=== PATIENT | female | born 1945 | race African-American/Black ===

== ENCOUNTER 2016-09-04 12:54 | Emergency (ER) | payer MEDICARE, OTHER ==
[~2016-09-04] VITALS: Ht 165.1 cm; Wt 72.7 kg
[~2016-09-04 12:54] MED LIST: AMLO-512 PO; CARV6 PO; DIAZ5 PO; HYDR25TA PO; LISI-622 PO; PARO20TA24 PO; RISP1TAB7 PO; TRAZ150 PO
[2016-09-04] MEDS ORDERED: SODIUM CHLORIDE 0.9% 1,000 ML IV ONE (13:45)
[2016-09-04 14:10] LABS: CALCIUM, TOTAL 8.9 mg/dL (8.8-10.5); CREATININE 1.15 mg/dL (0.60-1.30); POTASSIUM 3.3 mmol/L (3.5-5.1)
[2016-09-04 14:15] LABS: ALBUMIN 3.5 g/dL (3.4-5.0); BILIRUBIN,TOTAL 0.3 mg/dL (0.1-1.0); TOTAL PROTEIN, SERUM 7.4 g/dL (6.4-8.2)
[2016-09-04 14:16] LABS: RED BLOOD CELL COUNT(AUTO) 4.23 MIL/uL (4.00-5.20); WHITE BLOOD COUNT (AUTO) 4.1 K/uL (4.5-11.0)
[2016-09-04 14:17] LABS: BASOPHILS % (AUTO) 0.7 % (0.0-2.0); EOSINOPHILS % (AUTO) 0.6 % (1.0-6.0); HEMATOCRIT 35.9 % (36-46); HEMOGLOBIN 11.1 g/dL (12.0-16.0); LYMPHOCYTES # (AUTO) 1.1 K/uL (1.0-4.8); LYMPHOCYTES % (AUTO) 27.4 % (22.0-44.0); MEAN CORPUSCULAR HEMOGLOBIN 26.2 pg (26.0-34.0); MEAN CORPUSCULAR VOLUME 85 fL (80-100); MONOCYTES # (AUTO) 0.4 K/uL (0.1-1.0); MONOCYTES % (AUTO) 10.7 % (2.0-9.0); NEUTROPHILS # (AUTO) 2.4 K/uL (1.8-7.7); NEUTROPHILS % (AUTO) 60.4 % (40.0-70.0); PLATELET COUNT (AUTO) 214 K/uL (150-450); RBC MORPHOLOGY COMMENT ABNORMAL RBC MORPH; RED CELL DISTRIBUTION WIDTH 19.8 % (11.5-14.5)
[2016-09-04 15:28] LABS: APPEARANCE,URINE CLOUDY (CLEAR); GLUCOSE, URINE (UA) NEGATIVE (NEGATIVE); KETONES,URINE NEGATIVE (NEGATIVE); LEUKOCYTE ESTERASE ,URINE NEGATIVE (NEGATIVE); OCCULT BLOOD,URINE NEGATIVE (NEGATIVE); PH,URINE 5.5 (5.0-8.0); PROTEIN,URINE NEGATIVE (NEGATIVE)
[2016-09-04 15:42] LABS: ADD UA MICROSCOPIC YES
[2016-09-04 15:43] LABS: RBC,URINE 0-2 /HPF (0-2); SQUAMOUS EPITHELIAL CELL,UR Few /LPF (None Seen); WBC,URINE 0-2 /HPF (0-5)
[2016-09-04] MEDS ORDERED: CIPROFLOXACIN HCL 250 MG TABLET PO ONE (16:00)
[2016-09-04 16:33] VITALS: BP 127/62
== END 2016-09-04 16:34 | disposition home or self-care (01) ==
LOC: EMS 12:58
DX: R55 Syncope and collapse (principal); N39.0 Urinary tract infection, site not specified; E87.6 Hypokalemia; K21.9 Gastro-esophageal reflux disease without esophagitis; I67.1 Cerebral aneurysm, nonruptured; I10 Essential (primary) hypertension; Z86.73 Personal history of transient ischemic attack (TIA), and cerebral infarction without residual deficits; Z88.0 Allergy status to penicillin
CPT/HCPCS: 36415; 80053; 81001; 83880; 84484; 85025; 87077; 87086; 87186; 93005; 96360; 99285; J7030

== ENCOUNTER 2017-03-11 06:24 | Inpatient (IN) | payer MEDICARE, OTHER ==
[~2017-03-11] VITALS: Ht 167.6 cm; Wt 68.0 kg
[~2017-03-11 06:24] MED LIST changes: -PARO20TA24 PO
[2017-03-11] MEDS ORDERED: ONDANSETRON HCL 4 MG/2 ML VIAL IVP ONE (06:45)
[2017-03-11] MEDS ORDERED: SODIUM CHLORIDE 0.9% 1,000 ML IV ONE (06:45)
[2017-03-11] MEDS ORDERED: NICARDipine 20 MG/DEXT,ISO-OSM 200 ML IV PRN ×2 (06:59→10:57)
[2017-03-11 07:01] LABS: BASOPHILS % (AUTO) 0.3 % (0.0-2.0); EOSINOPHILS % (AUTO) 0.7 % (1.0-6.0); HEMATOCRIT 36.8 % (36-46); HEMOGLOBIN 12.2 g/dL (12.0-16.0); LYMPHOCYTES # (AUTO) 2.1 K/uL (1.0-4.8); LYMPHOCYTES % (AUTO) 22.2 % (22.0-44.0); MEAN CORPUSCULAR HEMOGLOBIN 29.6 pg (26.0-34.0); MEAN CORPUSCULAR HGB CONC 33.1 G/dL (31.0-37.0); MEAN CORPUSCULAR VOLUME 89 fL (80-100); MONOCYTES # (AUTO) 0.7 K/uL (0.1-1.0); MONOCYTES % (AUTO) 7.1 % (2.0-9.0); NEUTROPHILS # (AUTO) 6.7 K/uL (1.8-7.7); NEUTROPHILS % (AUTO) 69.7 % (40.0-70.0); PLATELET COUNT (AUTO) 182 K/uL (150-450); RED BLOOD CELL COUNT(AUTO) 4.12 MIL/uL (4.00-5.20); RED CELL DISTRIBUTION WIDTH 17.3 % (11.5-14.5); WHITE BLOOD COUNT (AUTO) 9.6 K/uL (4.5-11.0)
[2017-03-11 07:11] LABS: ANION GAP 9 mmol/L (8-16); CALCIUM, TOTAL 8.7 mg/dL (8.8-10.5); CARBON DIOXIDE 30 mmol/L (22-29); CHLORIDE 105 mmol/L (98-107); CREATININE 0.77 mg/dL (0.60-1.30); GLOMERULAR FILTR. RATE CALC > 60 mL/min (>60); INR 1.1 (0.9-1.1); POTASSIUM 4.3 mmol/L (3.5-5.1); PROTHROMBIN TIME 11.2 SEC (9.4-11.6); SODIUM SERUM 144 mmol/L (136-145); UREA NITROGEN, BLOOD 13 mg/dL (7-18)
[2017-03-11 07:17] LABS: ALANINE AMINOTRANSFERASE 30 U/L (12-78); ALBUMIN 3.4 g/dL (3.4-5.0); ASPARTATE AMINOTRANSFERASE 37 U/L (15-37); BILIRUBIN,TOTAL 0.2 mg/dL (0.1-1.0); CREATINE KINASE, TOTAL 50 U/L (26-192)
[2017-03-11 07:18] LABS: TROPONIN I 0.04 ng/mL (0.00-0.05)
[2017-03-11 07:19] LABS: LACTIC ACID 1.2 mmol/L (0.4-2.0)
[2017-03-11] MEDS ORDERED: LevETIRAcetam 1,000 MG in DEXTROSE 5%-WATER 100 ML IV ONE (07:30)
[2017-03-11 07:32] LABS: B-TYPE NATRIURETIC PEPTIDE 29 pg/mL (0-100)
[2017-03-11 07:35] LABS: RBC MORPHOLOGY COMMENT ABNORMAL RBC MORPH
[2017-03-11 07:40] LABS: AMMONIA < 10 umol/L (11-32)
[2017-03-11 07:41] LABS: ADD UA MICROSCOPIC YES; APPEARANCE,URINE CLEAR (CLEAR); GLUCOSE, URINE (UA) 100 mg/dL (NEGATIVE); KETONES,URINE NEGATIVE (NEGATIVE); LEUKOCYTE ESTERASE ,URINE NEGATIVE (NEGATIVE); OCCULT BLOOD,URINE NEGATIVE (NEGATIVE); PH,URINE 6.5 (5.0-8.0); PROTEIN,URINE POS 1+ (NEGATIVE)
[2017-03-11] MEDS ORDERED: IOVERSOL 350 MG/ML 100 ML VIAL ONE (07:42)
[2017-03-11 07:49] LABS: RBC,URINE None Seen /HPF (0-2); SQUAMOUS EPITHELIAL CELL,UR Few /LPF (None Seen); WBC,URINE 0-2 /HPF (0-5)
[2017-03-11] MEDS ORDERED: ONDANSETRON HCL 4 MG/2 ML VIAL IVP PRN ×2 (08:15→11:00)
[2017-03-11] MEDS ORDERED: 0.9% SODIUM CHLORIDE 10 ML SYRINGE IVP PRN (08:15)
[2017-03-11] MEDS ORDERED: ACETAMINOPHEN 325 MG TABLET PO PRN (08:15)
[2017-03-11] MEDS ORDERED: BISACODYL 10 MG RECTAL RECTAL SUPPOSITORY PR PRN (11:00)
[2017-03-11] MEDS ORDERED: ZOLPIDEM TARTRATE 5 MG TABLET PO PRN (11:00)
[2017-03-11] MEDS ORDERED: MAGNESIUM HYDROXIDE SUSPENSION 30 ML UDCUP PO PRN (11:00)
[2017-03-11 11:27] VITALS: BP 138/72
[2017-03-11] MEDS ORDERED: PNEUMOCOCCAL VACCINE POLYVALENT 0.5 ML VIAL [PPSV23] IM ONE (11:30)
[2017-03-11] MEDS: ACETAMINOPHEN 325 MG TABLET PO PRN ×2 (11:48→18:08)
[2017-03-11 12:00] VITALS: BP 146/77
[2017-03-11 16:00] VITALS: BP 131/72
[2017-03-11 19:41] VITALS: BP 120/75
[2017-03-11] MEDS: CARVEDILOL 6.25 MG TABLET PO SCH (19:41)
[2017-03-11] MEDS: DOCUSATE SODIUM 100 MG CAPSULE PO SCH (19:41)
[2017-03-11] MEDS: MORPHINE SULFATE 2 MG/ML SYRINGE IVP PRN (19:41)
[2017-03-11 20:00] VITALS: BP 134/79
[2017-03-12] VITALS (9 sets, daily range): BP systolic 119–172; BP diastolic 72–96
[2017-03-12] MEDS: MORPHINE SULFATE 2 MG/ML SYRINGE IVP PRN ×2 (04:51→11:14)
[2017-03-12 05:48] LABS: INR 1.1 (0.9-1.1); PROTHROMBIN TIME 11.2 SEC (9.4-11.6)
[2017-03-12 06:10] LABS: ALANINE AMINOTRANSFERASE 26 U/L (12-78); ALBUMIN 3.3 g/dL (3.4-5.0); ANION GAP 7 mmol/L (8-16); ASPARTATE AMINOTRANSFERASE 27 U/L (15-37); BILIRUBIN,TOTAL 0.3 mg/dL (0.1-1.0); CARBON DIOXIDE 31 mmol/L (22-29); CHLORIDE 103 mmol/L (98-107); CREATININE 0.97 mg/dL (0.60-1.30); GLOMERULAR FILTR. RATE CALC > 60 mL/min (>60); POTASSIUM 3.1 mmol/L (3.5-5.1); SODIUM SERUM 141 mmol/L (136-145); TOTAL PROTEIN, SERUM 7.3 g/dL (6.4-8.2); UREA NITROGEN, BLOOD 12 mg/dL (7-18)
[2017-03-12 06:27] LABS: BASOPHILS % (AUTO) 0.4 % (0.0-2.0); EOSINOPHILS % (AUTO) 0.4 % (1.0-6.0); HEMATOCRIT 37.1 % (36-46); HEMOGLOBIN 12.2 g/dL (12.0-16.0); LYMPHOCYTES # (AUTO) 1.2 K/uL (1.0-4.8); LYMPHOCYTES % (AUTO) 28.7 % (22.0-44.0); MEAN CORPUSCULAR HEMOGLOBIN 29.3 pg (26.0-34.0); MEAN CORPUSCULAR HGB CONC 32.9 G/dL (31.0-37.0); MEAN CORPUSCULAR VOLUME 89 fL (80-100); MONOCYTES # (AUTO) 0.6 K/uL (0.1-1.0); MONOCYTES % (AUTO) 13.2 % (2.0-9.0); NEUTROPHILS # (AUTO) 2.5 K/uL (1.8-7.7); NEUTROPHILS % (AUTO) 57.3 % (40.0-70.0); PLATELET COUNT (AUTO) 196 K/uL (150-450); RED BLOOD CELL COUNT(AUTO) 4.16 MIL/uL (4.00-5.20); RED CELL DISTRIBUTION WIDTH 16.9 % (11.5-14.5); WHITE BLOOD COUNT (AUTO) 4.4 K/uL (4.5-11.0)
[2017-03-12] MEDS: PANTOPRAZOLE SODIUM 40 MG DR TABLET PO SCH (08:21)
[2017-03-12] MEDS: DOCUSATE SODIUM 100 MG CAPSULE PO SCH ×2 (08:21→20:15)
[2017-03-12] MEDS: CARVEDILOL 6.25 MG TABLET PO SCH ×2 (08:22→20:15)
[2017-03-12] MEDS: ACETAMINOPHEN 325 MG TABLET PO PRN (08:22)
[2017-03-12] MEDS: AmLODIPine BESYLATE 10 MG TABLET PO SCH (08:22)
[2017-03-12] MEDS ORDERED: LISINOPRIL 5 MG TABLET PO SCH (09:00)
[2017-03-12] MEDS: HydrALAZINE HCL 10 MG TABLET PO PRN ×2 (13:10→22:06)
[2017-03-12] MEDS ORDERED: RISP.5 PO (15:09)
[2017-03-12] MEDS ORDERED: POTASSIUM CHLORIDE 20 MEQ ER TABLET PO PRN (16:00)
[2017-03-12] MEDS: POTASSIUM CHLORIDE 20 MEQ ER TABLET PO PRN ×2 (16:00→22:05)
[2017-03-12] MEDS ORDERED: POTASSIUM CHL 10 MEQ/WATER 50 ML IV PRN ×2 (16:00)
[2017-03-12] MEDS: HYDROCODONE/ACETAMINOPHEN 5-325 MG TABLET PO PRN ×2 (16:25→22:06)
[2017-03-12] MEDS: SODIUM CHLORIDE 0.9% 1,000 ML IV SCH (17:14)
[2017-03-13] VITALS (11 sets, daily range): BP systolic 150–160; BP diastolic 76–99
[2017-03-13] MEDS: MORPHINE SULFATE 2 MG/ML SYRINGE IVP PRN ×2 (00:20→11:03)
[2017-03-13] MEDS: HYDROCODONE/ACETAMINOPHEN 5-325 MG TABLET PO PRN (04:58)
[2017-03-13 05:54] LABS: ANION GAP 4 mmol/L (8-16); CARBON DIOXIDE 31 mmol/L (22-29); CHLORIDE 104 mmol/L (98-107); CREATININE 0.72 mg/dL (0.60-1.30); GLOMERULAR FILTR. RATE CALC > 60 mL/min (>60); SODIUM SERUM 139 mmol/L (136-145); UREA NITROGEN, BLOOD 11 mg/dL (7-18)
[2017-03-13] MEDS: SODIUM CHLORIDE 0.9% 1,000 ML IV SCH (07:58)
[2017-03-13] MEDS: AmLODIPine BESYLATE 10 MG TABLET PO SCH (08:05)
[2017-03-13] MEDS: PANTOPRAZOLE SODIUM 40 MG DR TABLET PO SCH (08:05)
[2017-03-13] MEDS: DOCUSATE SODIUM 100 MG CAPSULE PO SCH ×2 (08:05→21:00)
[2017-03-13] MEDS: CARVEDILOL 6.25 MG TABLET PO SCH ×2 (08:05→21:08)
[2017-03-13] MEDS ORDERED: LISINOPRIL 10 MG TABLET PO SCH (09:00)
[2017-03-13] MEDS ORDERED: LISINOPRIL 5 MG TABLET PO SCH (09:00)
[2017-03-13] MEDS ORDERED: HydrALAZINE HCL 25 MG TABLET PO SCH (09:00)
[2017-03-13] MEDS: SODIUM CHLORIDE 0.45% 1,000 ML IV SCH (10:50)
[2017-03-13] MEDS ORDERED: LABETALOL HCL 100 MG TABLET PO SCH (11:15)
[2017-03-13] MEDS: HydrALAZINE HCL 25 MG TABLET PO SCH ×2 (15:33→21:08)
[2017-03-14] VITALS (7 sets, daily range): BP systolic 150–178; BP diastolic 76–98
[2017-03-14] MEDS: ACETAMINOPHEN 325 MG TABLET PO PRN (00:10)
[2017-03-14] MEDS: HYDROCODONE/ACETAMINOPHEN 5-325 MG TABLET PO PRN ×3 (03:36→18:53)
[2017-03-14 08:05] LABS: ANION GAP 7 mmol/L (8-16); CALCIUM, TOTAL 9.2 mg/dL (8.8-10.5); CARBON DIOXIDE 31 mmol/L (22-29); CHLORIDE 101 mmol/L (98-107); CREATININE 0.61 mg/dL (0.60-1.30); GLOMERULAR FILTR. RATE CALC > 60 mL/min (>60); PHOSPHORUS 3.2 mg/dL (2.5-4.9); POTASSIUM 3.9 mmol/L (3.5-5.1); SODIUM SERUM 139 mmol/L (136-145); UREA NITROGEN, BLOOD 9 mg/dL (7-18)
[2017-03-14] MEDS: AmLODIPine BESYLATE 10 MG TABLET PO SCH (08:10)
[2017-03-14] MEDS: HydrALAZINE HCL 10 MG TABLET PO PRN (08:10)
[2017-03-14] MEDS: CARVEDILOL 6.25 MG TABLET PO SCH (08:11)
[2017-03-14] MEDS: DOCUSATE SODIUM 100 MG CAPSULE PO SCH ×2 (08:11→20:36)
[2017-03-14] MEDS: PANTOPRAZOLE SODIUM 40 MG DR TABLET PO SCH (08:11)
[2017-03-14] MEDS: HydrALAZINE HCL 25 MG TABLET PO SCH ×3 (08:12→20:36)
[2017-03-14] MEDS: SODIUM CHLORIDE 0.45% 1,000 ML IV SCH (08:13)
[2017-03-14] MEDS: CARVEDILOL 12.5 MG TABLET PO SCH (20:36)
[2017-03-15] MEDS: HydrALAZINE HCL 10 MG TABLET PO PRN ×2 (01:44→12:25)
[2017-03-15 03:46] VITALS: BP 153/84
[2017-03-15 07:43] LABS: ANION GAP 8 mmol/L (8-16); CALCIUM, TOTAL 9.4 mg/dL (8.8-10.5); CARBON DIOXIDE 32 mmol/L (22-29); CHLORIDE 93 mmol/L (98-107); CREATININE 0.57 mg/dL (0.60-1.30); GLOMERULAR FILTR. RATE CALC > 60 mL/min (>60); PHOSPHORUS 3.6 mg/dL (2.5-4.9); POTASSIUM 3.8 mmol/L (3.5-5.1); SODIUM SERUM 133 mmol/L (136-145); UREA NITROGEN, BLOOD 14 mg/dL (7-18)
[2017-03-15 07:57] VITALS: BP 160/88
[2017-03-15] MEDS: CARVEDILOL 12.5 MG TABLET PO SCH (08:30)
[2017-03-15] MEDS: PANTOPRAZOLE SODIUM 40 MG DR TABLET PO SCH (08:30)
[2017-03-15] MEDS: DOCUSATE SODIUM 100 MG CAPSULE PO SCH ×2 (08:30→21:06)
[2017-03-15] MEDS: AmLODIPine BESYLATE 10 MG TABLET PO SCH (08:30)
[2017-03-15 12:21] VITALS: BP 174/87
[2017-03-15] MEDS ORDERED: HydrALAZINE HCL 25 MG TABLET PO SCH (13:00)
[2017-03-15] MEDS: HydrALAZINE HCL 50 MG TABLET PO SCH ×2 (15:26→21:06)
[2017-03-15] MEDS: ACETAMINOPHEN 325 MG TABLET PO PRN (15:26)
[2017-03-15 16:01] VITALS: BP 155/85
[2017-03-15 18:22] VITALS: BP 156/90
[2017-03-15 19:29] VITALS: BP 158/91
[2017-03-15] MEDS: CARVEDILOL 25 MG TABLET PO SCH (21:06)
[2017-03-16 00:38] VITALS: BP 154/87
[2017-03-16] MEDS: MORPHINE SULFATE 2 MG/ML SYRINGE IVP PRN (00:48)
[2017-03-16 04:25] VITALS: BP 151/89
[2017-03-16 07:36] VITALS: BP 167/97
[2017-03-16] MEDS: PANTOPRAZOLE SODIUM 40 MG DR TABLET PO SCH (08:22)
[2017-03-16] MEDS: HydrALAZINE HCL 50 MG TABLET PO SCH (08:22)
[2017-03-16] MEDS: AmLODIPine BESYLATE 10 MG TABLET PO SCH (08:22)
[2017-03-16] MEDS: CARVEDILOL 25 MG TABLET PO SCH (08:22)
[2017-03-16] MEDS: DOCUSATE SODIUM 100 MG CAPSULE PO SCH (08:22)
[2017-03-16 11:15] VITALS: BP 157/94
== END 2017-03-16 13:25 | DRG 304 ==
LOC: EMS 06:25 → ICU 09:51 → 5N 03-13 17:50
PROVIDERS: ADMIT Internal Medicine; ATTEND Internal Medicine
DX: I16.1 Hypertensive emergency (principal); I60.9 Nontraumatic subarachnoid hemorrhage, unspecified; R34 Anuria and oliguria; I61.4 Nontraumatic intracerebral hemorrhage in cerebellum; F20.9 Schizophrenia, unspecified; I10 Essential (primary) hypertension; N28.1 Cyst of kidney, acquired; F29 Unspecified psychosis not due to a substance or known physiological condition; F41.9 Anxiety disorder, unspecified; K21.9 Gastro-esophageal reflux disease without esophagitis; Z86.73 Personal history of transient ischemic attack (TIA), and cerebral infarction without residual deficits; Z88.0 Allergy status to penicillin; Q27.9 Congenital malformation of peripheral vascular system, unspecified; Z79.899 Other long term (current) drug therapy; Z91.14 Patient's other noncompliance with medication regimen; Z90.10 Acquired absence of unspecified breast and nipple; Z90.710 Acquired absence of both cervix and uterus
CPT/HCPCS: 51702; 70450; 70496; 76770; 82570; 83605; 83735; 84100; 84132; 84300; 84540; 87040; 87081; 93005; 96361; 96365; 96366; 96368; 96375; 97110; 97116; 97162; 97167; 97530; 99291; J0712; J2270; J2405; J7030; J7060

== ENCOUNTER 2017-03-16 13:40 | Inpatient (IN) | payer MEDICARE, OTHER ==
[~2017-03-16] VITALS: Ht 167.6 cm; Wt 68.0 kg
[~2017-03-16 13:40] MED LIST changes: +RISP.5 PO; -RISP1TAB7 PO
[2017-03-16 14:30] VITALS: BP 161/86
[2017-03-16] MEDS ORDERED: DOCUSATE SODIUM 100 MG CAPSULE PO PRN (15:30)
[2017-03-16] MEDS ORDERED: SENNA 187 MG TABLET PO PRN (15:30)
[2017-03-16 16:28] VITALS: BP 183/93
[2017-03-16] MEDS: ACETAMINOPHEN 325 MG TABLET PO PRN ×2 (16:36→23:33)
[2017-03-16] MEDS: HydrALAZINE HCL 25 MG TABLET PO SCH ×2 (16:36→21:26)
[2017-03-16] MEDS ORDERED: PNEUMOCOCCAL VACCINE POLYVALENT 0.5 ML VIAL [PPSV23] IM ONE (20:00)
[2017-03-16] MEDS ORDERED: RisperiDONE 0.5 MG TABLET PO SCH (21:00)
[2017-03-16] MEDS ORDERED: TraZODone HCL 150 MG TABLET PO SCH (21:00)
[2017-03-16 21:23] VITALS: BP 162/90
[2017-03-16] MEDS: DIAZEPAM 5 MG TABLET PO SCH (21:26)
[2017-03-16] MEDS: CARVEDILOL 25 MG TABLET PO SCH (21:26)
[2017-03-16] MEDS: 0.9% SODIUM CHLORIDE 10 ML SYRINGE IVP SCH (23:26)
[2017-03-16 23:30] VITALS: BP 159/94
[2017-03-17] MEDS: DOCUSATE SODIUM 283 MG/5 ML MINI-ENEMA PR PRN (05:03)
[2017-03-17 05:11] LABS: BASOPHILS % (AUTO) 0.7 % (0.0-2.0); EOSINOPHILS % (AUTO) 0.1 % (1.0-6.0); HEMATOCRIT 36.4 % (36-46); HEMOGLOBIN 12.2 g/dL (12.0-16.0); LYMPHOCYTES # (AUTO) 1.3 K/uL (1.0-4.8); LYMPHOCYTES % (AUTO) 13.1 % (22.0-44.0); MEAN CORPUSCULAR HEMOGLOBIN 29.3 pg (26.0-34.0); MEAN CORPUSCULAR HGB CONC 33.5 G/dL (31.0-37.0); MEAN CORPUSCULAR VOLUME 87 fL (80-100); MONOCYTES # (AUTO) 0.7 K/uL (0.1-1.0); MONOCYTES % (AUTO) 7.3 % (2.0-9.0); NEUTROPHILS # (AUTO) 7.8 K/uL (1.8-7.7); NEUTROPHILS % (AUTO) 78.8 % (40.0-70.0); PLATELET COUNT (AUTO) 236 K/uL (150-450); RED BLOOD CELL COUNT(AUTO) 4.16 MIL/uL (4.00-5.20); WHITE BLOOD COUNT (AUTO) 9.9 K/uL (4.5-11.0)
[2017-03-17 05:31] LABS: ALANINE AMINOTRANSFERASE 34 U/L (12-78); ALBUMIN 2.8 g/dL (3.4-5.0); ANION GAP 6 mmol/L (8-16); ASPARTATE AMINOTRANSFERASE 22 U/L (15-37); BILIRUBIN,TOTAL 0.5 mg/dL (0.1-1.0); CALCIUM, TOTAL 9.1 mg/dL (8.8-10.5); CARBON DIOXIDE 31 mmol/L (22-29); CHLORIDE 90 mmol/L (98-107); CREATININE 0.57 mg/dL (0.60-1.30); GLOMERULAR FILTR. RATE CALC > 60 mL/min (>60); SODIUM SERUM 127 mmol/L (136-145); TOTAL PROTEIN, SERUM 7.2 g/dL (6.4-8.2); UREA NITROGEN, BLOOD 16 mg/dL (7-18)
[2017-03-17 07:00] VITALS: BP 148/85
[2017-03-17] MEDS: 0.9% SODIUM CHLORIDE 10 ML SYRINGE IVP SCH (08:00)
[2017-03-17] MEDS: PANTOPRAZOLE SODIUM 40 MG DR TABLET PO SCH (08:29)
[2017-03-17] MEDS: HydrALAZINE HCL 50 MG TABLET PO SCH ×3 (08:29→20:27)
[2017-03-17] MEDS: AmLODIPine BESYLATE 10 MG TABLET PO SCH (08:29)
[2017-03-17] MEDS: CARVEDILOL 25 MG TABLET PO SCH ×2 (08:29→20:27)
[2017-03-17] MEDS: DOCUSATE SODIUM 250 MG CAPSULE PO SCH ×2 (08:33→20:27)
[2017-03-17] MEDS ORDERED: LISINOPRIL 5 MG TABLET PO SCH (09:00)
[2017-03-17] MEDS: DIAZEPAM 5 MG TABLET PO SCH ×2 (09:00→20:27)
[2017-03-17 15:31] VITALS: BP 149/87
[2017-03-17] MEDS: ACETAMINOPHEN 325 MG TABLET PO PRN (15:39)
[2017-03-17 20:26] VITALS: BP 140/70
[2017-03-17] MEDS: SENNA 187 MG TABLET PO SCH (20:27)
[2017-03-17] MEDS ORDERED: TraZODone HCL 150 MG TABLET PO SCH (21:00)
[2017-03-17] MEDS ORDERED: RisperiDONE 0.5 MG TABLET PO SCH (21:00)
[2017-03-17 23:58] VITALS: BP 146/76
[2017-03-18] VITALS (7 sets, daily range): BP systolic 134–157; BP diastolic 68–88
[2017-03-18 06:46] LABS: HEMOGLOBIN A1C 5.7 % (4.5-6.2)
[2017-03-18 07:06] LABS: ANION GAP 5 mmol/L (8-16); CALCIUM, TOTAL 9.1 mg/dL (8.8-10.5); CARBON DIOXIDE 32 mmol/L (22-29); CHLORIDE 91 mmol/L (98-107); CHOL/HDL RATIO 2.7 (3.9-5.7); CREATININE 0.64 mg/dL (0.60-1.30); GLOMERULAR FILTR. RATE CALC > 60 mL/min (>60); POTASSIUM 4.1 mmol/L (3.5-5.1); SODIUM SERUM 128 mmol/L (136-145); THYROID STIMULATING HORMONE 1.36 uIU/mL (0.36-3.74); UREA NITROGEN, BLOOD 19 mg/dL (7-18)
[2017-03-18] MEDS: HydrALAZINE HCL 50 MG TABLET PO SCH ×3 (08:12→20:31)
[2017-03-18] MEDS: DOCUSATE SODIUM 250 MG CAPSULE PO SCH ×2 (08:12→20:37)
[2017-03-18] MEDS: DIAZEPAM 5 MG TABLET PO SCH (08:12)
[2017-03-18] MEDS: AmLODIPine BESYLATE 10 MG TABLET PO SCH (08:12)
[2017-03-18] MEDS: CARVEDILOL 25 MG TABLET PO SCH ×2 (08:12→20:31)
[2017-03-18] MEDS: LISINOPRIL 10 MG TABLET PO SCH (08:12)
[2017-03-18] MEDS: PANTOPRAZOLE SODIUM 40 MG DR TABLET PO SCH (08:12)
[2017-03-18] MEDS ORDERED: DEXTROSE 5%-WATER 1,000 ML IV ONE (15:00)
[2017-03-18 16:46] LABS: GLUCOSE, URINE (UA) NEGATIVE (NEGATIVE); KETONES,URINE NEGATIVE (NEGATIVE); LEUKOCYTE ESTERASE ,URINE SMALL (NEGATIVE); OCCULT BLOOD,URINE NEGATIVE (NEGATIVE); PH,URINE 5.5 (5.0-8.0); PROTEIN,URINE TRACE (NEGATIVE)
[2017-03-18 17:11] LABS: APPEARANCE,URINE SLIGHTLY CLOUDY (CLEAR)
[2017-03-18 17:12] LABS: RBC,URINE 0-2 /HPF (0-2); SQUAMOUS EPITHELIAL CELL,UR Moderate /LPF (None Seen)
[2017-03-18] MEDS: SENNA 187 MG TABLET PO SCH (20:37)
[2017-03-19] VITALS (10 sets, daily range): BP systolic 120–168; BP diastolic 54–97
[2017-03-19] MEDS: ACETAMINOPHEN 325 MG TABLET PO PRN ×2 (04:00→15:42)
[2017-03-19] MEDS: AmLODIPine BESYLATE 10 MG TABLET PO SCH (08:02)
[2017-03-19] MEDS: CARVEDILOL 25 MG TABLET PO SCH ×2 (08:02→21:46)
[2017-03-19] MEDS: DOCUSATE SODIUM 250 MG CAPSULE PO SCH ×2 (08:02→21:45)
[2017-03-19] MEDS: HydrALAZINE HCL 50 MG TABLET PO SCH ×3 (08:02→21:45)
[2017-03-19] MEDS: PANTOPRAZOLE SODIUM 40 MG DR TABLET PO SCH (08:02)
[2017-03-19] MEDS: LISINOPRIL 10 MG TABLET PO SCH (08:03)
[2017-03-19] MEDS: LEVOFLOXACIN 500 MG TABLET NG SCH (16:53)
[2017-03-19 17:21] LABS: ABG A-A DIFF O2 36.6 mmHg (10-20.0); ABG BASE EXCESS 5.4 mmol/L (-2.0-3.0); ABG OXYHEMOGLOBIN 97.1 % (94.0-100.0); ABG PCO2 41 mmHg (35-45); ABG PH 7.468 (7.35-7.450); TEMPERATURE, FAHRENHEIT, BG 99.8 FAHREN (96.0-98.6)
[2017-03-19 17:22] LABS: ALLEN TEST, BLOOD GAS Positive
[2017-03-19 17:36] LABS: BASOPHILS % (AUTO) 0.4 % (0.0-2.0); EOSINOPHILS % (AUTO) 0.3 % (1.0-6.0); HEMATOCRIT 34.4 % (36-46); HEMOGLOBIN 11.4 g/dL (12.0-16.0); LYMPHOCYTES # (AUTO) 1.3 K/uL (1.0-4.8); LYMPHOCYTES % (AUTO) 15.1 % (22.0-44.0); MEAN CORPUSCULAR HEMOGLOBIN 28.9 pg (26.0-34.0); MEAN CORPUSCULAR HGB CONC 33.1 G/dL (31.0-37.0); MEAN CORPUSCULAR VOLUME 87 fL (80-100); MONOCYTES # (AUTO) 0.7 K/uL (0.1-1.0); MONOCYTES % (AUTO) 8.5 % (2.0-9.0); NEUTROPHILS # (AUTO) 6.6 K/uL (1.8-7.7); NEUTROPHILS % (AUTO) 75.7 % (40.0-70.0); PLATELET COUNT (AUTO) 266 K/uL (150-450); RED BLOOD CELL COUNT(AUTO) 3.94 MIL/uL (4.00-5.20); RED CELL DISTRIBUTION WIDTH 16.3 % (11.5-14.5); WHITE BLOOD COUNT (AUTO) 8.8 K/uL (4.5-11.0)
[2017-03-19 17:48] LABS: ANION GAP 5 mmol/L (8-16); CALCIUM, TOTAL 8.7 mg/dL (8.8-10.5); CARBON DIOXIDE 32 mmol/L (22-29); CHLORIDE 91 mmol/L (98-107); CREATININE 0.67 mg/dL (0.60-1.30); GLOMERULAR FILTR. RATE CALC > 60 mL/min (>60); POTASSIUM 4.2 mmol/L (3.5-5.1); SODIUM SERUM 128 mmol/L (136-145); UREA NITROGEN, BLOOD 22 mg/dL (7-18)
[2017-03-19 17:55] LABS: ALANINE AMINOTRANSFERASE 26 U/L (12-78); ALBUMIN 2.6 g/dL (3.4-5.0); ASPARTATE AMINOTRANSFERASE 18 U/L (15-37); BILIRUBIN,TOTAL 0.3 mg/dL (0.1-1.0)
[2017-03-19] MEDS: SENNA 187 MG TABLET PO SCH (21:46)
[2017-03-19 22:12] LABS: GLUCOSE,POINT OF CARE 142 MG/DL (70-110)
[2017-03-19] MEDS ORDERED: INSULIN REGULAR, HUMAN 100 UNITS/ML SQ PRN (22:15)
[2017-03-19] MEDS ORDERED: DEXTROSE 50%-WATER 25 GM/50 ML SYRINGE IVP PRN (22:15)
[2017-03-19] MEDS: SODIUM CHLORIDE 0.9% 500 ML IV ONE ×2 (23:08→23:55)
[2017-03-20] VITALS (14 sets, daily range): BP systolic 105–145; BP diastolic 10–77
[2017-03-20 01:55] LABS: GLUCOSE,POINT OF CARE 130 MG/DL (70-110)
[2017-03-20] MEDS: ACETAMINOPHEN 325 MG TABLET PO PRN ×4 (02:13→21:15)
[2017-03-20] MEDS: DOCUSATE SODIUM 283 MG/5 ML MINI-ENEMA PR PRN (05:26)
[2017-03-20 05:57] LABS: GLUCOSE,POINT OF CARE 124 MG/DL (70-110)
[2017-03-20 07:32] LABS: ANION GAP 5 mmol/L (8-16); CALCIUM, TOTAL 8.8 mg/dL (8.8-10.5); CARBON DIOXIDE 31 mmol/L (22-29); CHLORIDE 93 mmol/L (98-107); CREATININE 0.67 mg/dL (0.60-1.30); GLOMERULAR FILTR. RATE CALC > 60 mL/min (>60); POTASSIUM 4.4 mmol/L (3.5-5.1); SODIUM SERUM 129 mmol/L (136-145); UREA NITROGEN, BLOOD 21 mg/dL (7-18)
[2017-03-20] MEDS: HydrALAZINE HCL 25 MG TABLET PO SCH ×3 (08:50→21:16)
[2017-03-20] MEDS: LISINOPRIL 10 MG TABLET PO SCH (08:50)
[2017-03-20] MEDS: DOCUSATE SODIUM 250 MG CAPSULE PO SCH ×2 (08:50→21:15)
[2017-03-20] MEDS: AmLODIPine BESYLATE 10 MG TABLET PO SCH (08:50)
[2017-03-20] MEDS: LEVOFLOXACIN 500 MG TABLET NG SCH (08:50)
[2017-03-20] MEDS: PANTOPRAZOLE SODIUM 40 MG DR TABLET PO SCH (08:51)
[2017-03-20] MEDS: CARVEDILOL 25 MG TABLET PO SCH ×2 (08:51→21:16)
[2017-03-20 12:57] LABS: GLUCOSE,POINT OF CARE 131 MG/DL (70-110)
[2017-03-20] MEDS: 0.9% SODIUM CHLORIDE 10 ML SYRINGE IVP SCH (15:09)
[2017-03-20] MEDS ORDERED: SODIUM CHLORIDE 0.9% 500 ML IV ONE (16:00)
[2017-03-20 20:47] LABS: GLUCOSE,POINT OF CARE 121 MG/DL (70-110)
[2017-03-20] MEDS: SENNA 187 MG TABLET PO SCH (21:16)
[2017-03-21] VITALS (8 sets, daily range): BP systolic 123–155; BP diastolic 66–77
[2017-03-21] MEDS: 0.9% SODIUM CHLORIDE 10 ML SYRINGE IVP SCH ×4 (00:08→23:23)
[2017-03-21 02:12] LABS: GLUCOSE,POINT OF CARE 129 MG/DL (70-110)
[2017-03-21] MEDS: DOCUSATE SODIUM 283 MG/5 ML MINI-ENEMA PR PRN (05:49)
[2017-03-21 06:04] LABS: ANION GAP 3 mmol/L (8-16); CARBON DIOXIDE 33 mmol/L (22-29); CHLORIDE 98 mmol/L (98-107); CREATININE 0.71 mg/dL (0.60-1.30); GLOMERULAR FILTR. RATE CALC > 60 mL/min (>60); PHOSPHORUS 3.3 mg/dL (2.5-4.9); POTASSIUM 4.6 mmol/L (3.5-5.1); SODIUM SERUM 134 mmol/L (136-145); UREA NITROGEN, BLOOD 18 mg/dL (7-18)
[2017-03-21 06:37] LABS: GLUCOSE,POINT OF CARE 123 MG/DL (70-110)
[2017-03-21] MEDS: LEVOFLOXACIN 500 MG TABLET NG SCH (09:17)
[2017-03-21] MEDS: CARVEDILOL 25 MG TABLET PO SCH ×2 (09:17→20:30)
[2017-03-21] MEDS: DOCUSATE SODIUM 250 MG CAPSULE PO SCH ×2 (09:17→20:29)
[2017-03-21] MEDS: AmLODIPine BESYLATE 10 MG TABLET PO SCH (09:17)
[2017-03-21] MEDS: LISINOPRIL 10 MG TABLET PO SCH (09:18)
[2017-03-21] MEDS: HydrALAZINE HCL 25 MG TABLET PO SCH ×3 (09:18→20:30)
[2017-03-21] MEDS: PANTOPRAZOLE SODIUM 40 MG DR TABLET PO SCH (09:18)
[2017-03-21] MEDS ORDERED: SODIUM CHLORIDE 0.9% 500 ML IV ONE (10:30)
[2017-03-21 12:42] LABS: GLUCOSE,POINT OF CARE 124 MG/DL (70-110)
[2017-03-21] MEDS: NITROFURANTOIN/NITROFURAN MAC 100 MG CAPSULE [MACROBID] NG SCH (20:29)
[2017-03-21] MEDS: SENNA 187 MG TABLET PO SCH (20:29)
[2017-03-21] MEDS: ACETAMINOPHEN 325 MG TABLET PO PRN (20:31)
[2017-03-22] VITALS: BP 131/72
[2017-03-22 00:18] LABS: GLUCOSE,POINT OF CARE 132 MG/DL (70-110)
[2017-03-22 00:18] LABS: GLUCOSE,POINT OF CARE 114 MG/DL (70-110)
[2017-03-22 04:50] VITALS: BP 136/72
[2017-03-22 06:37] LABS: GLUCOSE,POINT OF CARE 124 MG/DL (70-110)
[2017-03-22 07:09] LABS: ANION GAP 3 mmol/L (8-16); CALCIUM, TOTAL 8.7 mg/dL (8.8-10.5); CARBON DIOXIDE 31 mmol/L (22-29); CHLORIDE 99 mmol/L (98-107); CREATININE 0.61 mg/dL (0.60-1.30); GLOMERULAR FILTR. RATE CALC > 60 mL/min (>60); PHOSPHORUS 3.6 mg/dL (2.5-4.9); POTASSIUM 4.2 mmol/L (3.5-5.1); SODIUM SERUM 133 mmol/L (136-145); UREA NITROGEN, BLOOD 15 mg/dL (7-18)
[2017-03-22 07:37] VITALS: BP 138/70
[2017-03-22] MEDS: 0.9% SODIUM CHLORIDE 10 ML SYRINGE IVP SCH (08:07)
[2017-03-22] MEDS: PANTOPRAZOLE SODIUM 40 MG DR TABLET PO SCH (08:08)
[2017-03-22] MEDS: HydrALAZINE HCL 25 MG TABLET PO SCH ×3 (08:08→20:21)
[2017-03-22] MEDS: CARVEDILOL 25 MG TABLET PO SCH ×2 (08:08→20:24)
[2017-03-22] MEDS: NITROFURANTOIN/NITROFURAN MAC 100 MG CAPSULE [MACROBID] NG SCH ×2 (08:08→20:23)
[2017-03-22] MEDS: DOCUSATE SODIUM 250 MG CAPSULE PO SCH ×2 (08:08→20:20)
[2017-03-22] MEDS: AmLODIPine BESYLATE 10 MG TABLET PO SCH (08:08)
[2017-03-22] MEDS: LISINOPRIL 10 MG TABLET PO SCH (08:08)
[2017-03-22 12:42] LABS: GLUCOSE,POINT OF CARE 100 MG/DL (70-110)
[2017-03-22 15:33] VITALS: BP 142/69
[2017-03-22 15:52] LABS: ABG A-A DIFF O2 27.7 mmHg (10-20.0); ABG BASE EXCESS 6.6 mmol/L (-2.0-3.0); ABG HCO3 29.9 mmol/L (22.0-26.0); ABG OXYHEMOGLOBIN 93.5 % (94.0-100.0); ABG PCO2 42 mmHg (35-45); ABG PH 7.472 (7.35-7.450); ALLEN TEST, BLOOD GAS Positive; TEMPERATURE, FAHRENHEIT, BG 98.6 FAHREN (96.0-98.6)
[2017-03-22 19:54] VITALS: BP 129/72
[2017-03-22] MEDS: SENNA 187 MG TABLET PO SCH (20:20)
[2017-03-23 00:28] VITALS: BP 130/75
[2017-03-23] MEDS: ACETAMINOPHEN 325 MG TABLET PO PRN (00:28)
[2017-03-23 04:00] VITALS: BP 118/67
[2017-03-23 07:27] VITALS: BP 105/67
[2017-03-23 07:30] VITALS: BP 125/65
[2017-03-23] MEDS: AmLODIPine BESYLATE 10 MG TABLET PO SCH (07:37)
[2017-03-23] MEDS: NITROFURANTOIN/NITROFURAN MAC 100 MG CAPSULE [MACROBID] NG SCH (07:37)
[2017-03-23] MEDS: DOCUSATE SODIUM 250 MG CAPSULE PO SCH (07:37)
[2017-03-23] MEDS: LISINOPRIL 10 MG TABLET PO SCH (07:37)
[2017-03-23] MEDS: PANTOPRAZOLE SODIUM 40 MG DR TABLET PO SCH (07:37)
[2017-03-23] MEDS: HydrALAZINE HCL 25 MG TABLET PO SCH (07:37)
[2017-03-23] MEDS: CARVEDILOL 25 MG TABLET PO SCH (07:37)
[2017-03-23] MEDS ORDERED: ONDANSETRON HCL 4 MG TABLET PO PRN (10:30)
[2017-03-23 12:09] VITALS: BP 137/76
== END 2017-03-23 15:50 | DRG 64 ==
LOC: 2WR 13:40
PROVIDERS: ADMIT Physical Medicine & Rehabilitation; ATTEND Physical Medicine & Rehabilitation
DX: I61.4 Nontraumatic intracerebral hemorrhage in cerebellum (principal); E43 Unspecified severe protein-calorie malnutrition; G93.40 Encephalopathy, unspecified; E87.3 Alkalosis; R13.10 Dysphagia, unspecified; E87.1 Hypo-osmolality and hyponatremia; N39.0 Urinary tract infection, site not specified; I16.1 Hypertensive emergency; I69.354 Hemiplegia and hemiparesis following cerebral infarction affecting left non-dominant side; B96.20 Unspecified Escherichia coli [E. coli] as the cause of diseases classified elsewhere; B96.89 Other specified bacterial agents as the cause of diseases classified elsewhere; K21.9 Gastro-esophageal reflux disease without esophagitis; F32.9 Major depressive disorder, single episode, unspecified; Z16.12 Extended spectrum beta lactamase (ESBL) resistance; F25.9 Schizoaffective disorder, unspecified; I65.21 Occlusion and stenosis of right carotid artery; I10 Essential (primary) hypertension; Z91.14 Patient's other noncompliance with medication regimen; Z88.0 Allergy status to penicillin; Z87.891 Personal history of nicotine dependence; Z91.19 Patient's noncompliance with other medical treatment and regimen; Z79.899 Other long term (current) drug therapy; Z68.24 Body mass index [BMI] 24.0-24.9, adult
CPT/HCPCS: 70450; 74000; 82805; 82962; 83036; 83735; 83935; 84100; 84133; 84300; 84443; 87081; 87086; 90471; 92507; 92508; 92523; 92526; 93970; 97110; 97112; 97150; 97163; 97167; 97530; 97535; 99366; J7040; J7060; Q0162

== ENCOUNTER 2017-08-24 09:50 | Emergency (ER) | payer MEDICARE, OTHER ==
[~2017-08-24] VITALS: Ht 170.2 cm; Wt 72.7 kg
[2017-08-24 12:41] LABS: BASOPHILS % (AUTO) 1.4 % (0.0-2.0); EOSINOPHILS % (AUTO) 0.8 % (1.0-6.0); HEMOGLOBIN 11.2 g/dL (12.0-16.0); LYMPHOCYTES # (AUTO) 1.7 K/uL (1.0-4.8); MEAN CORPUSCULAR HEMOGLOBIN 28.2 pg (26.0-34.0); MEAN CORPUSCULAR HGB CONC 32.8 G/dL (31.0-37.0); MEAN CORPUSCULAR VOLUME 86 fL (80-100); MONOCYTES # (AUTO) 0.4 K/uL (0.1-1.0); MONOCYTES % (AUTO) 7.5 % (2.0-9.0); NEUTROPHILS # (AUTO) 2.6 K/uL (1.8-7.7); NEUTROPHILS % (AUTO) 54.3 % (40.0-70.0); PLATELET COUNT (AUTO) 254 K/uL (150-450); RED BLOOD CELL COUNT(AUTO) 3.97 MIL/uL (4.00-5.20)
[2017-08-24] MEDS ORDERED: SODIUM CHLORIDE 0.9% 1,000 ML IV ONE (12:45)
[2017-08-24] MEDS ORDERED: CefTRIAXone SODIUM 1 GM in DEXTROSE 5%-WATER 10 ML IV ONE (12:45)
[2017-08-24] MEDS ORDERED: ACETAMINOPHEN 500 MG TABLET PO ONE (12:45)
[2017-08-24 12:59] LABS: ANION GAP 4 mmol/L (8-16); CARBON DIOXIDE 31 mmol/L (22-29); CHLORIDE 104 mmol/L (98-107); CREATININE 0.99 mg/dL (0.60-1.30); GLOMERULAR FILTR. RATE CALC > 60 mL/min (>60); GLUCOSE,RANDOM 152 mg/dL (70-110); POTASSIUM 4.1 mmol/L (3.5-5.1); SODIUM SERUM 139 mmol/L (136-145); UREA NITROGEN, BLOOD 12 mg/dL (7-18)
[2017-08-24 13:00] LABS: B-TYPE NATRIURETIC PEPTIDE 38 pg/mL (0-100)
[2017-08-24 13:00] LABS: AMPHET/METH SCREEN,URINE NEGATIVE (NEGATIVE); BARBITURATE SCREEN, URINE NEGATIVE (NEGATIVE); BENZODIAZEPINES SCREEN,URINE POSITIVE (NEGATIVE); CANNABINOID SCREEN,URINE NEGATIVE (NEGATIVE); COCAINE SCREEN,URINE NEGATIVE (NEGATIVE); METHADONE SCREEN, URINE NEGATIVE (NEGATIVE); OPIATE SCREEN,URINE NEGATIVE (NEGATIVE)
[2017-08-24 13:03] LABS: PHENCYCLIDINE SCREEN,URINE NEGATIVE (NEGATIVE)
[2017-08-24 13:08] LABS: ALANINE AMINOTRANSFERASE 24 U/L (12-78); ALBUMIN 3.4 g/dL (3.4-5.0); ALKALINE PHOSPHATASE 119 U/L (46-116); ASPARTATE AMINOTRANSFERASE 20 U/L (15-37); BILIRUBIN,TOTAL 0.3 mg/dL (0.1-1.0); TOTAL PROTEIN, SERUM 7.8 g/dL (6.4-8.2)
[2017-08-24 14:19] LABS: APPEARANCE,URINE CLOUDY (CLEAR); BILIRUBIN,URINE NEGATIVE (NEGATIVE); GLUCOSE, URINE (UA) NEGATIVE (NEGATIVE); KETONES,URINE NEGATIVE (NEGATIVE); NITRATE,URINE POSITIVE (NEGATIVE); OCCULT BLOOD,URINE NEGATIVE (NEGATIVE); PH,URINE 6.5 (5.0-8.0); PROTEIN,URINE TRACE (NEGATIVE); UROBILINOGEN,URINE 0.2 mg/dL (<=1.0)
[2017-08-24 14:27] LABS: LEUKOCYTE ESTERASE ,URINE MODERATE (NEGATIVE)
[2017-08-24 14:28] LABS: BACTERIA,URINE Moderate /HPF (None Seen); RBC,URINE 0-2 /HPF (0-2); SQUAMOUS EPITHELIAL CELL,UR Moderate /LPF (None Seen)
[2017-08-24 14:30] VITALS: BP 132/69
== END 2017-08-24 14:45 | disposition home or self-care (01) ==
LOC: EMS 09:51
DX: N39.0 Urinary tract infection, site not specified (principal); R51 Headache; I10 Essential (primary) hypertension; K21.9 Gastro-esophageal reflux disease without esophagitis; Z88.0 Allergy status to penicillin
CPT/HCPCS: 36415; 70450; 80053; 80307; 81001; 83880; 85025; 87086; 93005; 96374; 99285; J0696; J7030; J7060

== ENCOUNTER 2017-09-19 14:36 | Emergency (ER) | payer MEDICARE, OTHER ==
[~2017-09-19] VITALS: Ht 172.7 cm; Wt 68.0 kg
[2017-09-19] MEDS ORDERED: ACETAMINOPHEN 325 MG TABLET PO ONE (15:00)
[2017-09-19 16:19] VITALS: BP 146/93
== END 2017-09-19 16:26 | disposition home or self-care (01) ==
LOC: EMS 14:38
DX: S20.211A Contusion of right front wall of thorax, initial encounter (principal); F20.9 Schizophrenia, unspecified; I10 Essential (primary) hypertension; K21.9 Gastro-esophageal reflux disease without esophagitis; Z86.73 Personal history of transient ischemic attack (TIA), and cerebral infarction without residual deficits; Z90.710 Acquired absence of both cervix and uterus; Z88.0 Allergy status to penicillin; Z79.899 Other long term (current) drug therapy; W19.XXXA Unspecified fall, initial encounter; Y93.01 Activity, walking, marching and hiking; Y92.89 Other specified places as the place of occurrence of the external cause; Y99.8 Other external cause status
CPT/HCPCS: 99283